=== PATIENT | female | born 1960 | race Caucasian/White ===

== ENCOUNTER 2018-09-28 15:55 | Observation (INO) ==
[2018-09-28] MEDS ORDERED: *HR* Metformin 500 MG TABLET PO SCH (17:00)
[2018-09-28] MEDS ORDERED: D5% in Water 1,000 ML IVC PRN (17:33)
[2018-09-28] MEDS ORDERED: Dextrose Gel 15 GM/37.5 ML TUBE PO PRN ×2 (17:33)
[2018-09-28] MEDS ORDERED: *HR* Dextrose 50 % in Water (Vial) 50 ML VIAL IVP PRN (17:33)
[2018-09-28] MEDS: 0.9 % Sodium Chloride w KCl 20 MEQ/1,000 ML MLS IVC SCH (17:37)
[2018-09-28] MEDS: Insulin LISPRO 300 UNITS/3 ML VIAL SQ SCH (17:47)
[2018-09-28] MEDS ORDERED: *HR* Rivaroxaban 10 MG TABLET PO SCH (18:00)
[2018-09-28 19:13] LABS: Bilirubin,Urine Negative (Negative); Blood,Urine Negative (Negative); Glucose,Urine (UA) 250 mg/dL (Normal); Ketones,Urine Negative (Negative); Leukocyte Esterase,Urine Negative (Negative); Nitrite,Urine Negative (Negative); Protein,Urine Negative (Neg-Trace); Specific Gravity,Urine 1.015 (1.010-1.025); Urobilinogen,Urine Normal (Normal)
[2018-09-28 19:14] LABS: Clarity,Urine Clear (Clear); Color,Urine Light Yellow (Yellow)
[2018-09-28] MEDS: Insulin DETEMIR 100 UNIT/ML X5UNITS SQ SCH (20:35)
[2018-09-28] MEDS ORDERED: hydrOXYzine pamoate 25 MG CAPSULE PO SCH (21:00)
[2018-09-28] MEDS ORDERED: Insulin LISPRO 300 UNITS/3 ML VIAL SQ SCH (21:00)
[2018-09-29] MEDS: 0.9 % Sodium Chloride w KCl 20 MEQ/1,000 ML MLS IVC SCH (04:56)
[2018-09-29] MEDS ORDERED: Isosorbide MONOnitrate (24 HR) 30 MG TAB.ER.24H PO SCH (09:00)
[2018-09-29] MEDS ORDERED: Metoprolol XL (24 HR) Succ 50 MG TAB.ER.24H PO SCH (09:00)
[2018-09-29] MEDS ORDERED: *HR* Metformin 500 MG TABLET PO SCH (09:30)
[2018-09-29 09:34] VITALS: BP 127/80
[2018-09-29] MEDS: Insulin LISPRO 300 UNITS/3 ML VIAL SQ SCH ×2 (09:38→12:13)
[2018-09-29] MEDS: Insulin DETEMIR 100 UNIT/ML X5UNITS SQ SCH (09:39)
[2018-09-29] MEDS ORDERED: Cyanocobalamin (B-12) 1,000 MCG/ML VIAL IM ONE (12:07)
--- NOTE | 2018-09-29 12:15 | Internal Med History&Physical ---
Date of Encounter: 09/29/18 Time of Encounter: 11:35 Assessment and Plan (1) Shortness of breath Current visit: No Status: Acute Now resolved. Chest x-ray in emergency room was unremarkable for worrisome pathology. BN peptide was normal at 35. (2) CKD (chronic kidney disease) stage 2, GFR 60-89 ml/min Current visit: Yes Status: Chronic Creatinine slightly higher at 1.62 from 1.08 on 08/14/2018. (3) Anemia Current visit: Yes Status: Acute Anemia testing was ordered. Qualifiers: Anemia type: unspecified type Qualified Code(s): D64.9 - Anemia, unspecified (4) Schizophrenia Current visit: Yes Status: Acute Duration unknown. She is on no definitive treatment. She reports she occasionally hears voices Qualifiers: Schizophrenia type: unspecified Qualified Code(s): F20.9 - Schizophrenia, unspecified (5) Vitamin D deficiency Current visit: Yes Status: Acute Vitamin D level returned low at 9 on labs today. Supplemental vitamin D will be ordered. (6) HTN (hypertension) Current visit: No Status: Chronic Continue Toprol-XL and Imdur Qualifiers: Hypertension type: essential hypertension Qualified Code(s): I10 - Essential (primary) hypertension (7) PAF (paroxysmal atrial fibrillation) Current visit: No Status: Chronic Continue Xarelto and Toprol-XL. Internal Medicine - H&P: HPI Chief complaint: Dyspnea Admitted From: Emergency Dept Plans for Post Hospital Care: Home History of present illness: Ms. Moreland is a 58 year old female who was transferred from [facility] emergency room to [facility] for observation admission after she presented there with dyspnea onset earlier in the day. She denies significant pain or other symptoms. She was also found to have acute on chronic renal insufficiency. She was admitted to [facility] observation for ongoing care needs. She reports a diagnosis of chronic kidney disease stage III. She does not follow with a cesspool cleaner. Cardiovascular history is significant for hypertension and paroxysmal atrial f ibrillation. 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 She denies AL DVT or pulmonary embolus. Echocardiogram 02/09/2018 showed LVEF of 65-70%. There was no significant valvular abnormality seen. The interventricular septum and posterior wall thickness measurements were 0.94 and 0.96 cm respectively. E/A ratio was 1.6. RVSP estimate could not be done because of lack of TR jet. Regadenoson EST 09/12/2016 showed atrial fibrillation with LVEF was 52%. EKG portion was nondiagnostic for ischemia due to baseline ST T abnormalities. Perfusion imaging was negative for ischemia or infarct. Respiratory history is significant for having smoked from age [age] up to 2 packs per day. PFTs April 2018 showed FVC 77% predicted, FEV1 79% predicted, FEV1/FVC 80%, MVV 63% predicted, RV 141% predicted, and DLCO (corrected) 122% predicted. There was insignificant change in FVC and FEV1 postbronchodilator. She does not use home oxygen. She states her dyspnea has resolved now and she feels back to her baseline and wishes to be discharged home. Past Med Surg Social Fam HX - Past Medical History Medical history: atrial fibrillation, cancer, CHF, COPD, coronary artery disease, diabetes, hyperlipidemia, hypertension, peripheral artery disease, other Additional medical history: uterine cancer Psychiatric history: no psych history - Past Surgical History Surgical History: pacemaker Additional surgical history: D&C. hernia repair - Social History Smoking Status: Never smoker Smokeless Tobacco Status: No Alcohol use: none Drug use: none - Family History Mother Adopted: No Family Member Ethnicity: Non- Living Status: Hx Family Cardiac Disorders: Yes Hx Family Respiratory Disorders: Yes Hx Family Cancer: Yes Hx Family GI Disorders: No Hx Family Endocrine Disorder: Yes Hx Family Neuromuscular Disorders: No Hx Family Neurologic Disorders: No Hx Family HEENT Disorders: No Hx Family Autoimmune Disorders: No Sister Adopted: No Family Member Ethnicity: Non- Living Status: Still Living Hx Family Cardiac Disorders: Yes Hx Family Respiratory Disorders: Yes Hx Family Cancer: No Hx Family GI Disorders: No Hx Family Endocrine Disorder: No Hx Family Neuromuscular Disorders: No Hx Family Neurologic Disorders: No Hx Family HEENT Disorders: No Hx Family Autoimmune Disorders: No Father Adopted: No Family Member Ethnicity: Non- Living Status: Hx Family Cardiac Disorders: No Hx Family Respiratory Disorders: Yes Hx Family Cancer: Yes Hx Family GI Disorders: Yes Hx Family Endocrine Disorder: No Hx Family Neuromuscular Disorders: No Hx Family Neurologic Disorders: No Hx Family HEENT Disorders: No Hx Family Autoimmune Disorders: No Internal Medicine - H&P: Meds Atorvastatin Calcium [Lipitor] 20 mg PO DAILY 03/21/15 [History] Omeprazole [PriLOSEC] 20 mg PO DAILY 12/26/16 [History] Acetaminophen [Tylenol] 500 mg PO Q6HR PRN 02/10/17 [History] Nitroglycerin [Nitrostat] 0.4 mg SL Q5M PRN 02/10/17 [History] Amiodarone [Cordarone] 200 mg PO DAILY tablet 04/20/17 [Rx] Brimonidine Tartrate/Timolol [Combigan 0.2%-0.5% Eye Drops] 1 drop RIGHT EYE BID 02/08/18 [History] Docusate Sodium [Stool Softener] 100 mg PO BID PRN 02/08/18 [History] Furosemide [Lasix] 80 mg PO DAILY 02/08/18 [History] Insulin LISPRO [HumaLOG] 0 - 15 unit SQ ACHS PRN 02/08/18 [History] Insulin NPH, HUMAN [HumuLIN N] 25 unit SQ BID 02/08/18 [History] Losartan/Hydrochlorothiazide [Hyzaar 100-25 Tablet] 1 tab PO DAILY 02/08/18 [History] Metoprolol Succinate 200 mg PO DAILY 02/08/18 [History] Glucagon,Human Recombinant [Glucagon Emergency Kit] 1 each IM AD PRN 08/09/18 [History] Isosorbide MONOnitrate (24 HR) [Imdur] 30 mg PO DAILY 08/09/18 [History] Loratadine [Claritin] 10 mg PO DAILY 08/09/18 [History] Metformin HCl [Glucophage] 1,000 mg PO BIDWM 08/09/18 [History] Potassium Chloride [K-Tab ER] 20 meq PO DAILY 08/09/18 [History] Rivaroxaban [Xarelto] 20 mg PO QPM 08/09/18 [History] hydrOXYzine HCl [Hydroxyzine HCl] 25 mg PO HS 08/09/18 [History] metOLazone [Zaroxolyn] 5 mg PO DAILY PRN 08/09/18 [History] Miconazole 2% cream [Michelle Antifungal] 1 appl TP TID PRN #1 tube 08/15/18 [Rx] Allergy/AdvReac Type Severity Reaction Status Date / Time Penicillins Allergy Rash Verified 04/14/17 18:00 All Systems PM: A 10-system review of systems was performed and is negative for pertinent findings except as documented above in the HPI. Review of systems: Gen.: Her weight has increased from 113.4 kg on 04/20/2017 to present weight of 129.5 kg Cardiovascular: As per history of present illness Respiratory: As per history of present illness GI: She reports fatty liver disease. She states her last alcoholic drink was approximately one month ago. She has not used alcohol consistently for several years. She denies other disorders of her liver gallbladder or exocrine pancreas : She has chronic kidney disease but does not follow a cesspool cleaner. She denies other kidney or bladder disorders. Neurologic: She reports a CVA February 2018 leaving her with minimal left side weakness. Head CT 02/08/2018 showed no significant pathology. She denies seizures. Endocrine: She was diagnosed with DM 2 approximately 1998. She has hyperlipidemia but denies thyroid disease Hematology/oncology: She reports endometrial cancer with curative hysterectomy 2005. She has had anemia with history of iron and B12 deficiency in the past. She denies internal malignancies. Psychiatric: She claims she has been diagnosed with schizophrenia but does not take medication. She reports she hears voices occasionally. [place] skeletal: She reports diagnosis of gout. She denies significant arthritis other bone joint or muscle disorders. - Constitutional Vitals: Temp Pulse Resp BP Pulse Ox 98.2 F 97 16 127/80 97 09/29/18 06:18 09/29/18 09:33 09/29/18 06:18 09/29/18 09:33 09/29/18 09:33 Exam: Gen.: She is a well-developed morbidly obese female resting comfortably in bed who appears in no acute distress HEENT: Head is atraumatic and normocephalic. Eyes: EOMI. There is no scleral icterus. Mouth: Mucosa is moist. Neck: Supple and nontender. There is no thyromegaly or adenopathy noted. Heart: Regular without murmurs gallops or ectopics Lungs: No wheezes or crackles are heard. Abdomen: Soft and nontender. No masses or guarding are noted. Extremities: There is no cyanosis or clubbing noted. She has trace edema of the lower legs bilaterally. Dorsalis pedis and posterior tibial pulses are not palpable. She has no significant DJD changes of her hands. Neurologic: Mental status: She is talkative and a good historian. Cranial nerves: Smile is symmetric. Forehead wrinkles bilaterally. Tongue protrudes midline. EOMI. Motor: There is no pronator drift. Cerebellar: Finger to nose is intact bilaterally. Skin: Warm and dry Internal Med - H&P Results - Labs Labs: Urine 09/28/18 Range/Units 18:55 Urine Color Light Yellow (Yellow) Urine Clarity Clear (Clear) Urine pH 7.0 (5.0-8.0) pH Units Ur Specific [place] 1.015 (1.010-1.025) Urine Protein Negative (Neg-Trace) mg/dL Urine Glucose (UA) 250 H (Normal) mg/dL
--- NOTE | 2018-09-29 12:48 | Discharge Summary ---
Orders not resulted at time of discharge: Pending orders 09/30/18 04:00 Ferritin AM 0400 Folate AM 0400 Iron Profile AM 0400 Magnesium AM 0400 Vitamin B12 AM 0400 Vitamin D 25 Hydroxy AM 0400 10/01/18 04:00 Ferritin AM 0400 Folate AM 0400 Iron Profile AM 0400 Magnesium AM 0400 Vitamin B12 AM 0400 Vitamin D 25 Hydroxy AM 0400 Date of Encounter: 09/29/18 Time of Encounter: 11:35 - Discharge Diagnosis (1) Shortness of breath Priority: Primary Status: Resolved (2) CKD (chronic kidney disease) stage 2, GFR 60-89 ml/min Priority: Secondary Status: Chronic (3) Anemia Priority: Secondary Status: Acute Qualifiers: Anemia type: unspecified type Qualified Code(s): D64.9 - Anemia, unspecified (4) Schizophrenia Priority: Secondary Status: Chronic Qualifiers: Schizophrenia type: unspecified Qualified Code(s): F20.9 - Schizophrenia, unspecified (5) Vitamin D deficiency Priority: Secondary Status: Chronic (6) HTN (hypertension) Priority: Secondary Status: Chronic Qualifiers: Hypertension type: essential hypertension Qualified Code(s): I10 - Essential (primary) hypertension (7) PAF (paroxysmal atrial fibrillation) Priority: Secondary Status: Chronic Hospital course: Ms. Moreland is a 58 year old female who was transferred from [facility] emergency room to [facility] for observation admission after she presented there with dyspnea onset earlier in the day. She denies significant pain or other symptoms. She was also found to have acute on chronic renal insufficiency. She was admitted to [facility] observation for ongoing care needs. I saw her briefly the afternoon of September 28 and performed a complete history and physical and discharge on September 29. When I saw her on September 29 she reported her dyspnea had resolved and she felt back to her baseline. The etiology of the dyspnea was not determined with certainty. Review of renal indices showed significant fluctuation for several months. Her PCP can monitor and adjust dose of Hyzaar and Lasix as needed. Anemia testing showed iron 39, transferrin saturation 14%, transferrin 198, ferritin 151, B12 83, and folate 13. She was given a B12 injection and will start oral B12 supplementation at discharge. She will also be given ferrous sulfate with ascorbic acid. Vitamin D level returned low at 9. She will be given vitamin D 3000 international units daily. She reported occasionally hearing voices and being diagnosed with schizophrenia in the past. She was started on low-dose Seroquel and her PCP can follow-up and/or refer to mental health personnel as needed. She will follow with her PCP Angelia Quinones CNP within 1 week. - Time Spent with Patient Total time spent providing and/or coordinating discharge services: - Discharge Medications Prescriptions: New Ferrous Sulfate 325 mg PO DAILY #30 tablet Ketoconazole 2% CRM [Nizoral Cream] 1 appl TP BID #1 tube Quetiapine Fumarate [SEROquel] 25 mg PO BID #60 tablet Cyanocobalamin (B-12) [Vitamin B12] 1,000 mcg PO DAILY #30 tablet Ascorbic Acid [Vitamin C] 500 mg PO DAILY #30 tablet.er Cholecalciferol (D-3) [Vitamin D] 3,000 unit PO DAILY #90 tablet Continued Atorvastatin Calcium [Lipitor] 20 mg PO DAILY Omeprazole [PriLOSEC] 20 mg PO DAILY Acetaminophen [Tylenol] 500 mg PO Q6HR PRN PRN Reason: Pain Nitroglycerin [Nitrostat] 0.4 mg SL Q5M PRN PRN Reason: Chest Pain Amiodarone [Cordarone] 200 mg PO DAILY tablet Furosemide [Lasix] 80 mg PO DAILY Insulin NPH, HUMAN [HumuLIN N] 25 unit SQ BID Brimonidine Tartrate/Timolol [Combigan 0.2%-0.5% Eye Drops] 1 drop RIGHT EYE BID Insulin LISPRO [HumaLOG] 0 - 15 unit SQ ACHS PRN PRN Reason: sliding scale Docusate Sodium [Stool Softener] 100 mg PO BID PRN PRN Reason: Constipation Losartan/Hydrochlorothiazide [Hyzaar 100-25 Tablet] 1 tab PO DAILY Metoprolol Succinate 200 mg PO DAILY Glucagon,Human Recombinant [Glucagon Emergency Kit] 1 each IM AD PRN PRN Reason: GLUCOSE EMERGENCY hydrOXYzine HCl [Hydroxyzine HCl] 25 mg PO HS Isosorbide MONOnitrate (24 HR) [Imdur] 30 mg PO DAILY Loratadine [Claritin] 10 mg PO DAILY Metformin HCl [Glucophage] 1,000 mg PO BIDWM metOLazone [Zaroxolyn] 5 mg PO DAILY PRN PRN Reason: SWELLING Potassium Chloride [K-Tab ER] 20 meq PO DAILY Rivaroxaban [Xarelto] 20 mg PO QPM Miconazole 2% cream [Michelle Antifungal] 1 appl TP TID PRN #1 tube PRN Reason: See Comments Home Medications: Atorvastatin Calcium [Lipitor] 20 mg PO DAILY 03/21/15 [History] Omeprazole [PriLOSEC] 20 mg PO DAILY 12/26/16 [History] Acetaminophen [Tylenol] 500 mg PO Q6HR PRN 02/10/17 [History] Nitroglycerin [Nitrostat] 0.4 mg SL Q5M PRN 02/10/17 [History] Amiodarone [Cordarone] 200 mg PO DAILY tablet 04/20/17 [Rx] Brimonidine Tartrate/Timolol [Combigan 0.2%-0.5% Eye Drops] 1 drop RIGHT EYE BID 02/08/18 [History] Docusate Sodium [Stool Softener] 100 mg PO BID PRN 02/08/18 [History] Furosemide [Lasix] 80 mg PO DAILY 02/08/18 [History] Insulin LISPRO [HumaLOG] 0 - 15 unit SQ ACHS PRN 02/08/18 [History] Insulin NPH, HUMAN [HumuLIN N] 25 unit SQ BID 02/08/18 [History] Losartan/Hydrochlorothiazide [Hyzaar 100-25 Tablet] 1 tab PO DAILY 02/08/18 [History] Metoprolol Succinate 200 mg PO DAILY 02/08/18 [History] Glucagon,Human Recombinant [Glucagon Emergency Kit] 1 each IM AD PRN 08/09/18 [History] Isosorbide MONOnitrate (24 HR) [Imdur] 30 mg PO DAILY 08/09/18 [History] Loratadine [Claritin] 10 mg PO DAILY 08/09/18 [History] Metformin HCl [Glucophage] 1,000 mg PO BIDWM 08/09/18 [History] Potassium Chloride [K-Tab ER] 20 meq PO DAILY 08/09/18 [History] Rivaroxaban [Xarelto] 20 mg PO QPM 08/09/18 [History] hydrOXYzine HCl [Hydroxyzine HCl] 25 mg PO HS 08/09/18 [History] metOLazone [Zaroxolyn] 5 mg PO DAILY PRN 08/09/18 [History] Miconazole 2% cream [Michelle Antifungal] 1 appl TP TID PRN #1 tube 08/15/18 [Rx] Ascorbic Acid [Vitamin C] 500 mg PO DAILY #30 tablet.er 09/29/18 [Rx] Cholecalciferol (D-3) [Vitamin D] 3,000 unit PO DAILY #90 tablet 09/29/18 [Rx] Cyanocobalamin (B-12) [Vitamin B12] 1,000 mcg PO DAILY #30 tablet 09/29/18 [Rx] Ferrous Sulfate 325 mg PO DAILY #30 tablet 09/29/18 [Rx] Ketoconazole 2% CRM [Nizoral Cream] 1 appl TP BID #1 tube 09/29/18 [Rx] Quetiapine Fumarate [SEROquel] 25 mg PO BID #60 tablet 09/29/18 [Rx] Allergies/Adverse Reactions: Allergy/AdvReac Type Severity Reaction Status Date / Time Penicillins Allergy Rash Verified 04/14/17 18:00 Date of admission: 09/28/18 16:24 Primary care physician: Angelia Quinones CNP - Constitutional Vitals: Temp Pulse Resp BP Pulse Ox 98.2 F 97 16 127/80 97 09/29/18 06:18 09/29/18 09:33 09/29/18 06:18 09/29/18 09:33 09/29/18 09:33 - Patient Status Disposition: Home, Self-Care - Discharge Instructions Follow Up With: Angelia Quinones CNP [Primary Care Provider] - 1 week - Diet and Activity Activity: resume usual activities as tolerated Diet: diabetic diet
--- NOTE | 2018-09-29 14:50 | Physician Discharge Referral ---
Home Health/Hosp Referral Info Transfer to: Home Health Attending Provider: Lalit Provider in Charge Post Discharge: PCP Maria Esther) - Diagnosis (1) Shortness of breath Priority: Primary Status: Resolved (2) CKD (chronic kidney disease) stage 2, GFR 60-89 ml/min Priority: Secondary Status: Chronic (3) Anemia Priority: Secondary Status: Acute (4) Schizophrenia Priority: Secondary Status: Chronic (5) Vitamin D deficiency Priority: Secondary Status: Chronic (6) HTN (hypertension) Priority: Secondary Status: Chronic (7) PAF (paroxysmal atrial fibrillation) Priority: Secondary Status: Chronic - Respiratory Orders Oxygen / L per min Smoking Cessation: Smoking cessation has been advised. For more information, call the [place] Tobacco Quit Line at 5-133-DLNF-NOW. - Diet/Nutrition Diet/Nutrition Orders: No Concentrated Sweets - Activity Activity Orders: Ambulate - Services Needed Following services are medically necessary services: Nursing, Home Health Aide, Physical Therapy, Occupational Therapy - Transfer Medications Prescriptions: Ferrous Sulfate 325 mg PO DAILY #30 tablet Ketoconazole 2% CRM [Nizoral Cream] 1 appl TP BID #1 tube Quetiapine Fumarate [SEROquel] 25 mg PO BID #60 tablet Cyanocobalamin (B-12) [Vitamin B12] 1,000 mcg PO DAILY #30 tablet Ascorbic Acid [Vitamin C] 500 mg PO DAILY #30 tablet.er Cholecalciferol (D-3) [Vitamin D] 3,000 unit PO DAILY #90 tablet Home Medications: Atorvastatin Calcium [Lipitor] 20 mg PO DAILY 03/21/15 [History] Omeprazole [PriLOSEC] 20 mg PO DAILY 12/26/16 [History] Acetaminophen [Tylenol] 500 mg PO Q6HR PRN 02/10/17 [History] Nitroglycerin [Nitrostat] 0.4 mg SL Q5M PRN 02/10/17 [History] Amiodarone [Cordarone] 200 mg PO DAILY tablet 04/20/17 [Rx] Brimonidine Tartrate/Timolol [Combigan 0.2%-0.5% Eye Drops] 1 drop RIGHT EYE BID 02/08/18 [History] Docusate Sodium [Stool Softener] 100 mg PO BID PRN 02/08/18 [History] Furosemide [Lasix] 80 mg PO DAILY 02/08/18 [History] Insulin LISPRO [HumaLOG] 0 - 15 unit SQ ACHS PRN 02/08/18 [History] Insulin NPH, HUMAN [HumuLIN N] 25 unit SQ BID 02/08/18 [History] Losartan/Hydrochlorothiazide [Hyzaar 100-25 Tablet] 1 tab PO DAILY 02/08/18 [History] Metoprolol Succinate 200 mg PO DAILY 02/08/18 [History] Glucagon,Human Recombinant [Glucagon Emergency Kit] 1 each IM AD PRN 08/09/18 [History] Isosorbide MONOnitrate (24 HR) [Imdur] 30 mg PO DAILY 08/09/18 [History] Loratadine [Claritin] 10 mg PO DAILY 08/09/18 [History] Metformin HCl [Glucophage] 1,000 mg PO BIDWM 08/09/18 [History] Potassium Chloride [K-Tab ER] 20 meq PO DAILY 08/09/18 [History] Rivaroxaban [Xarelto] 20 mg PO QPM 08/09/18 [History] hydrOXYzine HCl [Hydroxyzine HCl] 25 mg PO HS 08/09/18 [History] metOLazone [Zaroxolyn] 5 mg PO DAILY PRN 08/09/18 [History] Miconazole 2% cream [Michelle Antifungal] 1 appl TP TID PRN #1 tube 08/15/18 [Rx] Ascorbic Acid [Vitamin C] 500 mg PO DAILY #30 tablet.er 09/29/18 [Rx] Cholecalciferol (D-3) [Vitamin D] 3,000 unit PO DAILY #90 tablet 09/29/18 [Rx] Cyanocobalamin (B-12) [Vitamin B12] 1,000 mcg PO DAILY #30 tablet 09/29/18 [Rx] Ferrous Sulfate 325 mg PO DAILY #30 tablet 09/29/18 [Rx] Ketoconazole 2% CRM [Nizoral Cream] 1 appl TP BID #1 tube 09/29/18 [Rx] Quetiapine Fumarate [SEROquel] 25 mg PO BID #60 tablet 09/29/18 [Rx] Allergies/Adverse Reactions: Allergy/AdvReac Type Severity Reaction Status Date / Time Penicillins Allergy Rash Verified 04/14/17 18:00 Certification: Further, I certify that my clinical findings support that this patient is homebound (i.e. absences from home require considerable and taxing effort and are for medical reasons or taoist services or infrequently or short duration when for other reasons) because: Homebound Reason: Leaving home requires considerable and taxing effort due to condition (Dyspnea on exertion, schizophrenia) Attestation: My signature below is to certify that this patient is under my care and that I, or nurse practitioner, or a physician's teachers' assistant working with me, has a [id number] encounter with this patient.
[2018-09-29] MEDS ORDERED: *HR* Rivaroxaban 15 MG TABLET PO SCH (17:00)
== END 2018-09-29 14:04 | disposition home or self-care (01) ==
LOC: INPPIK
PROVIDERS: ADMIT Internal Medicine; ATTEND Internal Medicine